=== PATIENT | male | born 1945 | race Caucasian/White ===

== ENCOUNTER 2018-04-15 08:00 | Emergency (ER) | payer MEDICARE ==
[~2018-04-15] VITALS: Ht 182.9 cm; Wt 113.6 kg
[2018-04-15] MEDS ORDERED: TRAM50TA4 PO (08:25)
[2018-04-15] MEDS ORDERED: GABA-533 PO (08:25)
[2018-04-15] MEDS ORDERED: METH10 PO (08:25)
[2018-04-15] MEDS ORDERED: METF-960 PO (08:25)
[2018-04-15 08:29] LABS: GLUCOSE,POINT OF CARE 138 MG/DL (70-110)
[2018-04-15 10:45] VITALS: BP 138/68
[2018-04-15] MEDS: TraMADol HCL 50 MG TABLET PO ONE (11:08)
== END 2018-04-15 11:13 | disposition home or self-care (01) ==
LOC: EMS 08:01
DX: M79.10 Myalgia, unspecified site (principal); E11.9 Type 2 diabetes mellitus without complications; F17.210 Nicotine dependence, cigarettes, uncomplicated; Z76.0 Encounter for issue of repeat prescription; Z79.84 Long term (current) use of oral hypoglycemic drugs; Z93.3 Colostomy status

== ENCOUNTER 2018-07-21 17:28 | Emergency (ER) | payer MEDICARE ==
[~2018-07-21] VITALS: Ht 185.4 cm; Wt 100.0 kg
[~2018-07-21 17:28] MED LIST: GABA-533 PO; METF-960 PO; METH10 PO; TRAM50TA4 PO
[2018-07-21 17:46] VITALS: BP 127/91
[2018-07-21] MEDS ORDERED: KETOROLAC TROMETHAMINE 30 MG/ML VIAL IM ONE (18:00)
== END 2018-07-21 18:05 | disposition home or self-care (01) ==
LOC: EMS 17:29
DX: G89.29 Other chronic pain (principal); M79.10 Myalgia, unspecified site; R53.1 Weakness; E11.9 Type 2 diabetes mellitus without complications; F11.20 Opioid dependence, uncomplicated; F17.210 Nicotine dependence, cigarettes, uncomplicated; Z79.899 Other long term (current) drug therapy
CPT/HCPCS: 82962; 96372; 99283; J1885

== ENCOUNTER 2018-07-23 16:13 | Emergency (ER) | payer MEDICARE ==
[~2018-07-23] VITALS: Ht 182.9 cm; Wt 104.5 kg
[2018-07-23 16:50] LABS: GLUCOSE,POINT OF CARE 113 MG/DL (70-110)
[2018-07-23 17:55] LABS: EOSINOPHILS % (AUTO) 2.5 % (1.0-6.0); HEMATOCRIT 34.2 % (41-53); HEMOGLOBIN 10.9 g/dL (13.5-17.5); LYMPHOCYTES % (AUTO) 28.9 % (22.0-44.0); MEAN CORPUSCULAR HEMOGLOBIN 22.7 pg (26.0-34.0); MEAN CORPUSCULAR HGB CONC 31.9 G/dL (31.0-37.0); MEAN CORPUSCULAR VOLUME 71 fL (80-100); MONOCYTES # (AUTO) 0.5 K/uL (0.1-1.0); MONOCYTES % (AUTO) 7.7 % (2.0-9.0); NEUTROPHILS # (AUTO) 4.1 K/uL (1.8-7.7); NEUTROPHILS % (AUTO) 59.9 % (40.0-70.0); PLATELET COUNT (AUTO) 366 K/uL (150-450); RED BLOOD CELL COUNT(AUTO) 4.81 MIL/uL (4.50-5.90); RED CELL DISTRIBUTION WIDTH 20.9 % (11.5-14.5)
[2018-07-23 18:07] LABS: ANION GAP 12 mmol/L (8-16); CALCIUM, TOTAL 9.3 mg/dL (8.8-10.5); CARBON DIOXIDE 25 mmol/L (22-29); CHLORIDE 103 mmol/L (98-107); CREATININE 1.09 mg/dL (0.60-1.30); GLUCOSE,RANDOM 104 mg/dL (70-110); POTASSIUM 4.3 mmol/L (3.5-5.1); SODIUM SERUM 140 mmol/L (136-145); UREA NITROGEN, BLOOD 14 mg/dL (7-18)
[2018-07-23 18:12] LABS: GLOMERULAR FILTR. RATE CALC > 60 mL/min (>60)
[2018-07-23 18:17] LABS: ALANINE AMINOTRANSFERASE 21 U/L (12-78); ALBUMIN 3.7 g/dL (3.4-5.0); ALKALINE PHOSPHATASE 89 U/L (46-116); ASPARTATE AMINOTRANSFERASE 16 U/L (15-37); BILIRUBIN,TOTAL 0.4 mg/dL (0.1-1.0); LIPASE 165 U/L (73-393); TOTAL PROTEIN, SERUM 7.9 g/dL (6.4-8.2)
[2018-07-23] MEDS: KETOROLAC TROMETHAMINE 30 MG/ML VIAL IM ONE (19:54)
[2018-07-23 20:39] VITALS: BP 133/82
== END 2018-07-23 20:50 | disposition home or self-care (01) ==
LOC: EMS 16:15
DX: G89.29 Other chronic pain (principal); M79.10 Myalgia, unspecified site; E11.9 Type 2 diabetes mellitus without complications; F17.210 Nicotine dependence, cigarettes, uncomplicated; Z76.0 Encounter for issue of repeat prescription; Z79.84 Long term (current) use of oral hypoglycemic drugs
CPT/HCPCS: 80053; 82962; 83690; 85025; 96372; 99283; J1885

== ENCOUNTER 2018-07-28 17:16 | Emergency (ER) | payer MEDICARE ==
[~2018-07-28] VITALS: Ht 182.9 cm; Wt 106.1 kg
[2018-07-28] MEDS ORDERED: ASPIRIN 81 MG CHEWABLE TABLET PO ONE (18:45)
[2018-07-28 19:09] LABS: GLUCOSE,POINT OF CARE 98 MG/DL (70-110)
[2018-07-28 19:11] LABS: EOSINOPHILS % (AUTO) 4.5 % (1.0-6.0); HEMATOCRIT 35.7 % (41-53); HEMOGLOBIN 11.2 g/dL (13.5-17.5); LYMPHOCYTES # (AUTO) 2.4 K/uL (1.0-4.8); LYMPHOCYTES % (AUTO) 35.1 % (22.0-44.0); MEAN CORPUSCULAR HEMOGLOBIN 22.8 pg (26.0-34.0); MEAN CORPUSCULAR HGB CONC 31.4 G/dL (31.0-37.0); MEAN CORPUSCULAR VOLUME 73 fL (80-100); MONOCYTES # (AUTO) 0.6 K/uL (0.1-1.0); MONOCYTES % (AUTO) 8.8 % (2.0-9.0); NEUTROPHILS # (AUTO) 3.4 K/uL (1.8-7.7); NEUTROPHILS % (AUTO) 50.6 % (40.0-70.0); PLATELET COUNT (AUTO) 324 K/uL (150-450); RED BLOOD CELL COUNT(AUTO) 4.91 MIL/uL (4.50-5.90); RED CELL DISTRIBUTION WIDTH 21.9 % (11.5-14.5)
[2018-07-28 19:19] LABS: ANION GAP 10 mmol/L (8-16); CALCIUM, TOTAL 9.8 mg/dL (8.8-10.5); CARBON DIOXIDE 26 mmol/L (22-29); CHLORIDE 106 mmol/L (98-107); CREATININE 1.05 mg/dL (0.60-1.30); GLUCOSE,RANDOM 98 mg/dL (70-110); POTASSIUM 4.4 mmol/L (3.5-5.1); SODIUM SERUM 142 mmol/L (136-145); UREA NITROGEN, BLOOD 16 mg/dL (7-18)
[2018-07-28 19:22] VITALS: BP 125/86
[2018-07-28 19:23] LABS: GLOMERULAR FILTR. RATE CALC > 60 mL/min (>60)
[2018-07-28 19:35] LABS: B-TYPE NATRIURETIC PEPTIDE 13 pg/mL (0-100)
[2018-07-28 19:44] LABS: ALANINE AMINOTRANSFERASE 15 U/L (12-78); ALBUMIN 3.7 g/dL (3.4-5.0); ALKALINE PHOSPHATASE 81 U/L (46-116); ASPARTATE AMINOTRANSFERASE 17 U/L (15-37); BILIRUBIN,TOTAL 0.4 mg/dL (0.1-1.0); CREATINE KINASE, TOTAL ONLY 78 U/L (39-308); TOTAL PROTEIN, SERUM 7.8 g/dL (6.4-8.2)
== END 2018-07-28 20:16 | disposition left against medical advice (07) ==
LOC: EMS 17:16
DX: G89.29 Other chronic pain (principal); R07.89 Other chest pain; E11.9 Type 2 diabetes mellitus without complications; F17.210 Nicotine dependence, cigarettes, uncomplicated; Z79.84 Long term (current) use of oral hypoglycemic drugs
CPT/HCPCS: 93005

== ENCOUNTER 2018-12-14 20:57 | Emergency (ER) | payer MEDICARE ==
[~2018-12-14] VITALS: Ht 188 cm; Wt 98.6 kg
[~2018-12-14 20:57] MED LIST changes: +APIX5TAB PO; +ATOR10TA84 PO; +LISI-622 PO; +PANT40TA25 PO; +PIOG15TA6 PO; +SOTA80 PO; -TRAM50TA4 PO; +TRAZ-252 PO
[2018-12-14] MEDS ORDERED: KETOROLAC TROMETHAMINE 60 MG/2 ML VIAL IM ONE (22:45)
[2018-12-14 23:00] VITALS: BP 138/74
== END 2018-12-15 00:46 | disposition home or self-care (01) ==
LOC: EMS 20:58
DX: M54.5 Low back pain (principal); G89.29 Other chronic pain; F17.210 Nicotine dependence, cigarettes, uncomplicated; I48.91 Unspecified atrial fibrillation; E11.9 Type 2 diabetes mellitus without complications; I10 Essential (primary) hypertension; Z79.84 Long term (current) use of oral hypoglycemic drugs; Z79.899 Other long term (current) drug therapy
CPT/HCPCS: 96372; 99283; 99406; J1885

== ENCOUNTER 2018-12-15 08:28 | Emergency (ER) | payer MEDICARE | END 2018-12-15 09:33 | disposition left against medical advice (07) | LOC: EMS 08:30 | DX: M54.9 Dorsalgia, unspecified (principal); Z53.21 Procedure and treatment not carried out due to patient leaving prior to being seen by health care provider ==